=== PATIENT | female | born 1965 | race Two or more races ===

== ENCOUNTER 2021-05-10 09:27 | Emergency (ER) | payer OTHER ==
[~2021-05-10] VITALS: Ht 149.9 cm; Wt 81.2 kg
[2021-05-10] MEDS ORDERED: METFORMIN HCL500 M3 PO (16:13)
== END 2021-05-10 16:28 | disposition home or self-care (01) ==
LOC: ER 09:27
DX: E11.649 Type 2 diabetes mellitus with hypoglycemia without coma (principal); R53.1 Weakness; Z11.52 Encounter for screening for COVID-19

== ENCOUNTER 2023-02-22 15:33 | Emergency (ER) | payer OTHER ==
[~2023-02-22] VITALS: Ht 139.7 cm; Wt 81.2 kg
[~2023-02-22 15:33] MED LIST: METFORMIN HCL500 M3 PO
== END 2023-02-22 21:26 | disposition home or self-care (01) ==
LOC: ER 15:33
DX: R53.81 Other malaise (principal); E11.65 Type 2 diabetes mellitus with hyperglycemia; R42 Dizziness and giddiness; I10 Essential (primary) hypertension